=== PATIENT | male | born 1930 | race Caucasian/White ===

== ENCOUNTER 2016-06-06 15:23 | Inpatient (IN) | payer OTHER ==
[~2016-06-06] VITALS: Ht 172.7 cm; Wt 80.8 kg
[~2016-06-06 15:23] MED LIST: ASPIRIN81 M1 PO; CARVEDILOL3.125 MG PO; FISH OIL SUPER1 SGL PO; OMEGA 31000 MG PO; OMEPRAZOLE20 MG PO; VITAMIN; VITAMIN D3400 IU PO; ZETIA10 MG PO; ZOCOR40 MG PO; [UNRECOGNIZED DRUG - OTHER] PO
[2016-06-06 15:54] VITALS: BP 146/72
[2016-06-06 17:06] LABS: BASO # 0.1 10*3/uL (0.0-0.1); BASO % 0.5 % (0.0-1.0); EOS # 0.2 10*3/uL (0.0-0.4); EOS % 1.3 % (1.0-4.0); HEMATOCRIT 43.2 % (42.0-52.0); IG # 0.1 10*3/uL (0.0-0.1); LYMPH # 1.8 10*3/uL (1.3-4.4); LYMPH % 14.4 % (27.0-41.0); MEAN CELL VOLUME 91.1 fl (80.0-94.0); MEAN CORPUSCULAR HGB 31.6 pg (27.0-31.0); MEAN CORPUSCULAR HGB CONC 34.7 g/dl (33.0-37.0); MEAN PLATELET VOLUME 10.7 fl (9.6-12.3); MONO # 1.4 10*3/uL (0.1-1.0); MONO % 10.8 % (3.0-9.0); NEUT # 9.2 10*3/uL (2.3-7.9); NEUT % 72.1 % (47.0-73.0); PLATELET COUNT AUTOMATED 206 10*3/uL (130-400); RED BLOOD COUNT 4.74 10*6/uL (4.50-5.90); RED CELL DISTRI WIDTH 12.2 % (0-14.5); WHITE BLOOD COUNT 12.8 10*3/uL (4.8-10.8)
[2016-06-06 17:23] LABS: ALBUMIN 3.1 gm/dl (3.1-4.5); ALKALINE PHOSPHATASE 79 U/L (45-117); BILIRUBIN, DIRECT 0.7 mg/dL (0.0-0.2); BILIRUBIN, TOTAL 1.4 mg/dl (0.2-1.0); BUN 21 mg/dl (7-24); CARBON DIOXIDE 28 mmol/L (21-32); CHLORIDE 107 mmol/L (98-107); EST GLOM FILT AFRICAN AMERICAN > 60 ml/min; GLUCOSE 114 mg/dL (65-99); POTASSIUM 3.7 mmol/L (3.5-5.1); SGOT/AST 39 IU/L (3-35); SGPT/ALT 50 U/L (12-78); SODIUM 144 mmol/L (136-145); TOTAL PROTEIN 6.6 gm/dL (6.4-8.2); TROPONIN I 0.037 ng/ml (<0.045)
[2016-06-06 19:21] VITALS: BP 154/72
[2016-06-06] MEDS ORDERED: ATORVASTATIN CA20 M1 PO (19:23)
[2016-06-06] MEDS ORDERED: NAMENDA-21 PO (19:23)
[2016-06-06] MEDS ORDERED: TAMSULOSIN HCL0.4 MG PO (19:24)
[2016-06-06 20:03] LABS: BILIRUBIN NEGATIVE (NEGATIVE); BLOOD NEGATIVE (NEGATIVE); CLARITY SL CLOUDY (CLEAR); COLOR YELLOW (YELLOW); GLUCOSE NEGATIVE (NEGATIVE); KETONE NEGATIVE (NEGATIVE); LEUKO ESTERASE NEGATIVE (NEGATIVE); NITRITE NEGATIVE (NEGATIVE); PROTEIN NEGATIVE (NEGATIVE); SPECIFIC GRAVITY <= 1.005 (1.005-1.030)
[2016-06-06 20:10] LABS: RBC 0-2 rbc/hpf (0-2)
[2016-06-06 20:11] LABS: BACTERIA TRACE; CALCIUM OXALATE CRYSTALS TRACE; EPITHELIAL CELLS 0-2; URINE REFLEX COMMENT NO (NO)
[2016-06-06 21:00] VITALS: BP 142/88
[2016-06-06] MEDS ORDERED: VITAMIN D32000 UNI1 PO (21:51)
[2016-06-06] MEDS ORDERED: ARICEPT10 M1 PO (21:52)
[2016-06-07] VITALS: BP 160/79
[2016-06-07 04:00] VITALS: BP 148/68
[2016-06-07 06:05] LABS: BASO % 0.4 % (0.0-1.0); EOS # 0.2 10*3/uL (0.0-0.4); EOS % 1.7 % (1.0-4.0); HEMATOCRIT 38.4 % (42.0-52.0); HEMOGLOBIN 13.4 g/dl (14.0-18.0); IG # 0.1 10*3/uL (0.0-0.1); LYMPH # 2.2 10*3/uL (1.3-4.4); LYMPH % 23.1 % (27.0-41.0); MEAN CELL VOLUME 90.4 fl (80.0-94.0); MEAN CORPUSCULAR HGB 31.5 pg (27.0-31.0); MEAN CORPUSCULAR HGB CONC 34.9 g/dl (33.0-37.0); MEAN PLATELET VOLUME 10.9 fl (9.6-12.3); MONO # 1.2 10*3/uL (0.1-1.0); MONO % 12.1 % (3.0-9.0); NEUT % 61.9 % (47.0-73.0); PLATELET COUNT AUTOMATED 187 10*3/uL (130-400); RED BLOOD COUNT 4.25 10*6/uL (4.50-5.90); RED CELL DISTRI WIDTH 12.3 % (0-14.5); WHITE BLOOD COUNT 9.6 10*3/uL (4.8-10.8)
[2016-06-07 06:46] LABS: ALBUMIN 2.9 gm/dl (3.1-4.5); ALKALINE PHOSPHATASE 69 U/L (45-117); BILIRUBIN, TOTAL 1.1 mg/dl (0.2-1.0); BUN 18 mg/dl (7-24); CARBON DIOXIDE 27 mmol/L (21-32); CHLORIDE 111 mmol/L (98-107); CHOLESTEROL 130 mg/dL (<200); EST GLOM FILT AFRICAN AMERICAN > 60 ml/min; FREE T4 1.31 ng/dl (0.76-1.46); GLUCOSE 92 mg/dL (65-99); HDL CHOLESTEROL 44 mg/dl (40-60); LDL CHOLESTEROL 65 mg/dL (9-159); MAGNESIUM 2.1 mg/dL (1.5-2.1); POTASSIUM 3.4 mmol/L (3.5-5.1); SGOT/AST 23 IU/L (3-35); SGPT/ALT 39 U/L (12-78); SODIUM 146 mmol/L (136-145); TOTAL PROTEIN 5.8 gm/dL (6.4-8.2); TRIGLYCERIDES 106 mg/dl (<150); VLDL CHOLESTEROL 21 mg/dL (6-40)
[2016-06-07 08:00] VITALS: BP 130/52
[2016-06-07 08:02] LABS: HEMOGLOBIN A1c 5.9 % (4.8-5.6)
[2016-06-07 08:32] LABS: FOLIC ACID 13.35 ng/mL (>5.38); VITAMIN D, 25-HYDROXY 37.7 ng/mL (30-100)
[2016-06-07 12:00] VITALS: BP 184/86
[2016-06-07 16:00] VITALS: BP 169/78
[2016-06-07 20:00] VITALS: BP 129/65
[2016-06-08] VITALS: BP 167/80
[2016-06-08 06:08] LABS: BASO # 0.1 10*3/uL (0.0-0.1); BASO % 0.6 % (0.0-1.0); EOS # 0.3 10*3/uL (0.0-0.4); HEMATOCRIT 38.3 % (42.0-52.0); HEMOGLOBIN 13.2 g/dl (14.0-18.0); IG # 0.1 10*3/uL (0.0-0.1); LYMPH # 2.3 10*3/uL (1.3-4.4); LYMPH % 26.1 % (27.0-41.0); MEAN CELL VOLUME 90.5 fl (80.0-94.0); MEAN CORPUSCULAR HGB 31.2 pg (27.0-31.0); MEAN CORPUSCULAR HGB CONC 34.5 g/dl (33.0-37.0); MEAN PLATELET VOLUME 11.1 fl (9.6-12.3); MONO # 1.2 10*3/uL (0.1-1.0); MONO % 13.7 % (3.0-9.0); NEUT % 55.6 % (47.0-73.0); PLATELET COUNT AUTOMATED 192 10*3/uL (130-400); RED BLOOD COUNT 4.23 10*6/uL (4.50-5.90); WHITE BLOOD COUNT 8.9 10*3/uL (4.8-10.8)
[2016-06-08 06:28] LABS: ALBUMIN 2.7 gm/dl (3.1-4.5); ALKALINE PHOSPHATASE 66 U/L (45-117); BUN 11 mg/dl (7-24); CARBON DIOXIDE 27 mmol/L (21-32); CHLORIDE 108 mmol/L (98-107); EST GLOM FILT AFRICAN AMERICAN > 60 ml/min; GLUCOSE 97 mg/dL (65-99); MAGNESIUM 1.9 mg/dL (1.5-2.1); PHOSPHOROUS 2.4 mg/dL (2.5-4.9); POTASSIUM 3.1 mmol/L (3.5-5.1); SGOT/AST 22 IU/L (3-35); SGPT/ALT 32 U/L (12-78); SODIUM 143 mmol/L (136-145)
[2016-06-08 06:29] LABS: TOTAL PROTEIN 5.4 gm/dL (6.4-8.2)
[2016-06-08 08:00] VITALS: BP 122/72
[2016-06-08 12:00] VITALS: BP 134/67
[2016-06-08 16:00] VITALS: BP 140/98
[2016-06-08 20:00] VITALS: BP 144/71
[2016-06-09] VITALS: BP 157/78
[2016-06-09 06:25] LABS: BUN 9 mg/dl (7-24); CARBON DIOXIDE 26 mmol/L (21-32); CHLORIDE 108 mmol/L (98-107); EST GLOM FILT AFRICAN AMERICAN > 60 ml/min; GLUCOSE 91 mg/dL (65-99); POTASSIUM 3.4 mmol/L (3.5-5.1); SODIUM 143 mmol/L (136-145)
[2016-06-09 08:00] VITALS: BP 156/88
[2016-06-09] MEDS ORDERED: FLAGYL500 MG PO (09:47)
[2016-06-09] MEDS ORDERED: CIPRO500 MG PO (09:48)
== END 2016-06-09 11:35 | disposition home health service (06) | DRG 371 ==
LOC: ED 15:23 → 5E 20:05 → EDHOLD 20:05 → 5E 20:14
PROVIDERS: Emergency Medicine; Internal Medicine; Internal Medicine Hospice and Palliative Medicine
DX: A04.9 Bacterial intestinal infection, unspecified (principal); E43 Unspecified severe protein-calorie malnutrition; E87.0 Hyperosmolality and hypernatremia; G30.9 Alzheimer's disease, unspecified; E86.0 Dehydration; D64.9 Anemia, unspecified; F02.80 Dementia in other diseases classified elsewhere, unspecified severity, without behavioral disturbance, psychotic disturbance, mood disturbance, and anxiety; K21.9 Gastro-esophageal reflux disease without esophagitis; I25.10 Atherosclerotic heart disease of native coronary artery without angina pectoris; Z96.1 Presence of intraocular lens; E78.5 Hyperlipidemia, unspecified; E87.6 Hypokalemia; K57.30 Diverticulosis of large intestine without perforation or abscess without bleeding; Z90.49 Acquired absence of other specified parts of digestive tract; Z95.818 Presence of other cardiac implants and grafts; Z98.49 Cataract extraction status, unspecified eye; Z82.49 Family history of ischemic heart disease and other diseases of the circulatory system; Z82.3 Family history of stroke; I25.2 Old myocardial infarction; Z79.82 Long term (current) use of aspirin; Z79.899 Other long term (current) drug therapy; Z68.27 Body mass index [BMI] 27.0-27.9, adult

== ENCOUNTER 2019-02-16 14:24 | Inpatient (IN) | payer OTHER ==
[~2019-02-16] VITALS: Ht 172.7 cm; Wt 72.7 kg
[~2019-02-16 14:24] MED LIST changes: +ARICEPT10 M1 PO; +ATORVASTATIN CA20 M1 PO; +CIPRO500 MG PO; +FLAGYL500 MG PO; +NAMENDA-21 PO; +TAMSULOSIN HCL0.4 MG PO; +VITAMIN D32000 UNI1 PO
[2019-02-16 14:25] VITALS: BP 102/52
[2019-02-16 14:40] VITALS: BP 119/67
--- NOTE | 2019-02-16 14:48 | NUR ---
PTS STATES THAT THE [T HAS "SPELLS" LIKE THIS FROM TIME TO TIME. SHE STATES THAT TODAY HE WAS EXERCISING WITH PT WHEN HE APPEARED TO GET LIGHT HEADED AND "WENT OUT" SHE REPORTS THAT THE PT DID NOT FALL TO THE GROUND THE PT HELPED HIM TO THE CHAIR. SHE STATES THAT THE PT IS AT HIS BASELINE MENTALITY.
[2019-02-16 14:51] LABS: BASO # 0.1 10*3/uL (0.0-0.1); BASO % 0.6 % (0.0-1.0); EOS # 0.5 10*3/uL (0.0-0.4); EOS % 5.4 % (1.0-4.0); HEMATOCRIT 39.8 % (42.0-52.0); HEMOGLOBIN 13.6 g/dl (14.0-18.0); LYMPH % 20.2 % (27.0-41.0); MEAN CELL VOLUME 94.1 fl (80.0-94.0); MEAN CORPUSCULAR HGB 32.2 pg (27.0-31.0); MEAN CORPUSCULAR HGB CONC 34.2 g/dl (33.0-37.0); MEAN PLATELET VOLUME 11.6 fl (9.6-12.3); MONO # 1.1 10*3/uL (0.1-1.0); MONO % 11.6 % (3.0-9.0); NEUT % 61.6 % (47.0-73.0); PLATELET COUNT AUTOMATED 186 10*3/uL (130-400); RED BLOOD COUNT 4.23 10*6/uL (4.50-5.90); RED CELL DISTRI WIDTH 12.6 % (0-14.5); WHITE BLOOD COUNT 9.8 10*3/uL (4.8-10.8)
[2019-02-16 15:09] LABS: ALBUMIN 2.8 gm/dl (3.1-4.5); ALKALINE PHOSPHATASE 87 U/L (45-117); BUN 15 mg/dl (7-24); CHLORIDE 107 mmol/L (98-107); CREATININE 1.08 mg/dL (0.70-1.30); POTASSIUM 3.2 mmol/L (3.5-5.1); SGOT/AST 23 IU/L (3-35); SGPT/ALT 22 U/L (12-78); SODIUM 142 mmol/L (136-145); TOTAL PROTEIN 5.9 gm/dL (6.4-8.2); TROPONIN I 0.029 ng/ml (<0.045)
--- NOTE | 2019-02-16 15:15 | NUR ---
LAB CALLS WITH A LACTIC ACID OF 2.4 DOC MADE AWARE.
--- NOTE | 2019-02-16 15:19 | NUR ---
REPORT FROM HUANG FLOWERS AT THIS TIME.
[2019-02-16 17:26] VITALS: BP 112/60
[2019-02-16 17:40] VITALS: BP 148/80
--- NOTE | 2019-02-16 17:40 | NUR ---
A 88, admitted to , under the services of CLARENCE Bailey DO with a diagnosis of SYNCOPE. Chief complaint is SYNCOPE. Patient arrived via bed from ER. Monitor applied. Initial assessment completed. Vital signs taken and recorded. CLARENCE BAILEY DO notified of admission to the unit. Orders received. See assessment for past medical history, medications and allergies. Patient and/or family oriented to unit. [facility] visitation policy reviewed. Clothing/patient valuable form completed. AYANA HILL
[2019-02-16] MEDS ORDERED: MEMANTINE HCL E21 MG PO (18:00)
[2019-02-16] MEDS ORDERED: DONEPEZIL HCL10 MG PO (18:03)
--- NOTE | 2019-02-16 19:49 | NUR ---
MED UPDATED PER , DR CORBETT NOTIFIED.
--- NOTE | 2019-02-16 19:50 | NUR ---
DR CORBETT NOTIFIED OF PT BILATERAL WOUNDS TO KNEES, PHYSICIAN STATES THAT HE WILL PUT ORDERS IN.
[2019-02-16 20:00] VITALS: BP 140/72
--- NOTE | 2019-02-16 20:02 | NUR ---
PATIENT MEDICATED WITH NORCO FOR C/O BLE PAIN, UNABLE TO STATE LEVEL OF PAIN D/T CONFUSION. WILL MONITOR
--- NOTE | 2019-02-16 21:02 | NUR ---
NORCO EFFECTIVE FOR BLE PAIN
[2019-02-17] VITALS: BP 131/76
--- NOTE | 2019-02-17 | NUR ---
PATIENT RESTING QUIETLY IN BED. NO DISTRESS NOTED. CALL LIGHT WITHIN REACH
--- NOTE | 2019-02-17 04:00 | NUR ---
PATIENT SLEEPING, EYES CLOSED. NO DISTRESS NOTED
[2019-02-17 06:31] LABS: BASO # 0.1 10*3/uL (0.0-0.1); BASO % 0.7 % (0.0-1.0); EOS # 0.6 10*3/uL (0.0-0.4); EOS % 6.8 % (1.0-4.0); HEMATOCRIT 37.6 % (42.0-52.0); HEMOGLOBIN 12.9 g/dl (14.0-18.0); LYMPH # 2.4 10*3/uL (1.3-4.4); LYMPH % 28.8 % (27.0-41.0); MEAN CELL VOLUME 93.3 fl (80.0-94.0); MEAN CORPUSCULAR HGB CONC 34.3 g/dl (33.0-37.0); MEAN PLATELET VOLUME 11.7 fl (9.6-12.3); MONO # 1.1 10*3/uL (0.1-1.0); MONO % 13.7 % (3.0-9.0); NEUT # 4.1 10*3/uL (2.3-7.9); PLATELET COUNT AUTOMATED 172 10*3/uL (130-400); RED BLOOD COUNT 4.03 10*6/uL (4.50-5.90); RED CELL DISTRI WIDTH 12.5 % (0-14.5); WHITE BLOOD COUNT 8.3 10*3/uL (4.8-10.8)
[2019-02-17 06:50] LABS: BUN 14 mg/dl (7-24); CHLORIDE 109 mmol/L (98-107); CREATININE 0.94 mg/dL (0.70-1.30); POTASSIUM 3.1 mmol/L (3.5-5.1); SODIUM 144 mmol/L (136-145)
[2019-02-17 07:00] LABS: FREE T4 1.09 ng/dl (0.76-1.46)
[2019-02-17 07:32] LABS: ACT PARTIAL THROMBO TIME 25.7 SECONDS (20.0-32.1)
[2019-02-17 07:41] LABS: VITAMIN D, 25-HYDROXY 41.4 ng/mL (30-100)
--- NOTE | 2019-02-17 08:00 | NUR ---
ORDERS RECEIVED TO STRAIGHT CATH PATIENT IN ORDER TO OBTAIN URINE FOR UA.
--- NOTE | 2019-02-17 08:20 | NUR ---
ATTEMPTSX2 MADE TO STRAIGHT CATH PATIENT, UNSUCCESSFUL AT THIS TIME. DR OWEN NOTIFIED AND REQUESTS THAT WE TRY A [place] CATHETER IN ORDER TO OBTAIN URINE SPECIMEN, DUE TO PATIENT BEING INCONTINENT.
[2019-02-17 09:01] VITALS: BP 130/68
--- NOTE | 2019-02-17 09:24 | NUR ---
PT GIVEN NORCO AT THIS TIME FOR C/O GENERALIZED BODY PAIN. WILL MONITOR FOR EFFECTIVENESS. RESPIRATIONS 20 ON ROOM AIR, UNLABORED. VITALS WNL. SAFETY MEASURES IN PLACE. CALL LIGHT IN REACH.
--- NOTE | 2019-02-17 10:24 | NUR ---
SHAYY EFFECTIVE PER PT.
[2019-02-17 12:08] VITALS: BP 128/70
--- NOTE | 2019-02-17 13:00 | NUR ---
CONDOM CATHETER IN PLACE WITH NO DRAINAGE OF URINE NOTED AT THIS TIME. WILL CONTINUE TO MONITOR FOR OUTPUT.
--- NOTE | 2019-02-17 13:30 | NUR ---
PT IS FOUND TO HAVE ST DIETER PACEMAKER. PACEMAKER INTERROGATED AT BEDSIDE PER PROTOCOL BY 2 RNS. AWAITING RESULTS. PER FAMILY, PACEMAKER BATTERY HAS A RECALL. PER FAMILY, ALL BATTERY CHECKS HAVE SHOWN TO BE NORMAL AND NOT FAULTY. PER FAMILY, PT WAS UNABLE TO MAKE LAST APPOINTMENT TO HAVE PACEMAKER CHECKED, WHICH WAS TWO WEEKS AGO.
[2019-02-17 14:34] LABS: BILIRUBIN 1+ (NEGATIVE); BLOOD 3+ (NEGATIVE); CLARITY CLOUDY (CLEAR); COLOR YELLOW (YELLOW); GLUCOSE NEGATIVE (NEGATIVE); KETONE NEGATIVE (NEGATIVE); LEUKO ESTERASE TRACE (NEGATIVE); NITRITE NEGATIVE (NEGATIVE); PH 5.5 (5.0-9.0); SPECIFIC GRAVITY >= 1.030 (1.005-1.030)
[2019-02-17 14:43] LABS: BACTERIA 1+; EPITHELIAL CELLS 0-2; MUCOUS 2+; RBC 21-30 rbc/hpf (0-2)
--- NOTE | 2019-02-17 15:48 | NUR ---
Shift chart check completed.
--- NOTE | 2019-02-17 16:00 | NUR ---
PT BATHED AT THIS TIME AND DRESSINGS TO BILATERAL KNEES ARE PLACED. PT TOLERATED WELL. NO S/S OF DISTRESS. RESPIRATIONS EASY AND UNLABORED ON ROOM AIR. CALL LIGHT IN REACH. SAFETY MEASURES IN PLACE.
--- NOTE | 2019-02-17 19:30 | NUR ---
[email or web address] STATED THAT THEY DID NOT RECIEVED TRANSMISSION FOR PACEMAKER INTERROGATION. INTERROGATION DONE AGAIN.
[2019-02-17 20:00] VITALS: BP 130/69
[2019-02-18] VITALS: BP 126/60
--- NOTE | 2019-02-18 00:11 | NUR ---
CALLED [facility] IN REGARDS TO PACEMAKER INTEROGATION. STATED THAT THE INTEROGATOR IS PAIRING WITH THE DEVICES BUT NOT SENDING AN ACTUALLY TRANSMISSION. STATED THAT IT WILL HAVE TO BE COMPLETED AGAIN. WILL ATTEMPT IN MORNING WHEN PATIENT IS NOT ASLEEP
--- NOTE | 2019-02-18 02:04 | NUR ---
24 HR chart check completed.
[2019-02-18 06:37] LABS: BASO # 0.1 10*3/uL (0.0-0.1); BASO % 0.9 % (0.0-1.0); EOS # 0.7 10*3/uL (0.0-0.4); EOS % 7.4 % (1.0-4.0); HEMATOCRIT 38.9 % (42.0-52.0); HEMOGLOBIN 13.2 g/dl (14.0-18.0); LYMPH # 2.3 10*3/uL (1.3-4.4); LYMPH % 23.6 % (27.0-41.0); MEAN CELL VOLUME 92.8 fl (80.0-94.0); MEAN CORPUSCULAR HGB 31.5 pg (27.0-31.0); MEAN CORPUSCULAR HGB CONC 33.9 g/dl (33.0-37.0); MEAN PLATELET VOLUME 11.7 fl (9.6-12.3); MONO # 1.3 10*3/uL (0.1-1.0); MONO % 12.8 % (3.0-9.0); NEUT # 5.4 10*3/uL (2.3-7.9); NEUT % 54.4 % (47.0-73.0); PLATELET COUNT AUTOMATED 178 10*3/uL (130-400); RED BLOOD COUNT 4.19 10*6/uL (4.50-5.90); RED CELL DISTRI WIDTH 12.5 % (0-14.5); WHITE BLOOD COUNT 9.9 10*3/uL (4.8-10.8)
[2019-02-18 07:02] LABS: BUN 14 mg/dl (7-24); CHLORIDE 112 mmol/L (98-107); CREATININE 0.76 mg/dL (0.70-1.30); POTASSIUM 3.7 mmol/L (3.5-5.1); SODIUM 144 mmol/L (136-145)
[2019-02-18 12:00] VITALS: BP 141/69
--- NOTE | 2019-02-18 13:00 | NUR ---
PHYSICAL THERAPY PT EVAL COMPLETED TODAY: FULL EVAL TO FOLLOW. RECOMMEND PT WHILE HERE TO ADDRESS DECREASED STRENGTH AND FUNCTIONAL MOBILITY . PT EVAL IS MODERATE COMPLEXITY : 94455, D/C RECOMEMNDATIONS AT THIS TIME ARE FOR SNF ON D/C DUE TO SEVERE LIMITATIONS IN MOBILITY. THANK YOU FOR REFERRAL MAVERICK POWELL PT
--- NOTE | 2019-02-18 13:16 | NUR ---
PT UP IN CHAIR AT BEDSIDE. VOICES NO NEEDS. AT BEDSIDE.CALL LIGHT IN REACH.
[2019-02-18 16:00] VITALS: BP 132/69
--- NOTE | 2019-02-18 17:08 | NUR ---
NORCO 5/325 MG GIVEN FOR C/O NECK PAIN,10/07.
--- NOTE | 2019-02-18 19:15 | NUR ---
REPORT RECIEVED FROM ROSALBA. WAS INFORMED BY THIS NURSE THAT VERBALLY STATED THAT INTEROGATION OF PACEMAKER DID NOT NEED TO BE DONE.
[2019-02-18 20:00] VITALS: BP 141/76
--- NOTE | 2019-02-18 21:50 | NUR ---
PATIENT MEDICATED WITH RESTORIL TO HELP WITH INSOMNIA. WILL MONITOR
[2019-02-19] VITALS: BP 135/44
--- NOTE | 2019-02-19 03:37 | NUR ---
24 HR chart check completed.
--- NOTE | 2019-02-19 03:56 | NUR ---
IV started right arm with #22 protective cath after 0 attempts. Site prepped with Chloroprep. Sterile dressing applied. Patient tolerated procedure well. IV infusing at 80 cc/hr. OLYA GIBSON
--- NOTE | 2019-02-19 03:57 | NUR ---
Hep Lock discontinued RAN. Site symptomatic, LEAKING AT SITE. Pressure applied. Sterile dressing applied. OLYA GIBSON
--- NOTE | 2019-02-19 05:19 | NUR ---
PATIENT MEDICATED WITH NORCO FOR NECK PAIN. WILL MONITOR
--- NOTE | 2019-02-19 06:19 | NUR ---
NORCO EFFECTIVE FOR NECK PAIN
--- NOTE | 2019-02-19 07:21 | NUR ---
CHARLES VILLAR [id number] Please refer to the physician's history and physical for past medical history, comorbid conditions, and allergies. Diagnosis: SYNOCPE Jarad Score: 13,MODERATE RISK WOUND DESCRIPTIONS: Wound Number: 1 Location of the wound: right knee Type of wound: skin tear Thickness: Full Size: 0.5cm x 1.5cm x 0.1cm Tunneling: none Undermining: none Sinus Tract: none Presence of Exudate: Serosanguineous Amount: Light Color: Red, yellow Odor: None Periwound Skin Appearance: Erythema Wound edges: approximated Pain (associated with wound): none at time of assessment How does patient state this happened? pt stated he fell but is unsure of the date Wound Number: 2 Location of the wound: left knee Type of wound: skin tear Thickness: Partial Size: 1.2cm x 0.7cm x 0.1cm Tunneling: none Undermining: none Sinus Tract: none Presence of Exudate: Serosanguineous Amount: Light Color: Red Odor: None Periwound Skin Appearance: Erythema Wound edges: approximated Pain (associated with wound): none at time of assessment How does patient state this happened? pt stated he fell but unable to tell me the date Surface the patient is resting on: Isoflex SKIN PREVENTION RECOMMENDATION: 1. Pressure redistribution support surface as appropriate 2. Elevate heels 3. Remove boots/TEDS every shift and reapply 4. Head of bed 30 degrees as tolerated 5. Assess nutrition and hydration 6. Manage moisture 7. Avoid the use of containment devices while in bed 8. Use absorptive products on surfaces limit layers of linens on bed 9. Turn and reposition every 1-2 hours in bed and every 1 hour in chair as tolerated 10. Weight shifts every 15 minutes while up in chair 11. Offloading with pillows or device to keep heels elevated off bed 12. Monitor skin at least every shift 13. Inspect under medical devices twice a day WOUND TREATMENT RECOMMENDATIONS: Continue skin tear guidelines to bilateral knees.
[2019-02-19 08:00] VITALS: BP 143/67
--- NOTE | 2019-02-19 08:50 | NUR ---
Occupational therapy orders received and OT evaluation completed in full on floor four. Patient precautions include fall risk, ww use, decreased cognition, poor safety awareness, Mod-Max Ax2, and bed/chair alarm. Per OT eval, OT recommends a SNF. If refused, home with SN, OT, and PT with / supervision/assist. Patient would benefit from continued OT treatment to maximize independence and safety with ADLs, mobility, and transfers. Patient complexity is moderate, 29903. Thank you for the referral. Valentina Vazquez, OTR/L
--- NOTE | 2019-02-19 09:00 | NUR ---
Flask Pusher in to see patient. He is sitting up in his bedside chair working with OT. Will follow up at a later time and call his .
--- NOTE | 2019-02-19 09:43 | NUR ---
Spoke to , Julieta, at [phone]. Discussed discharge planning. She refuses SNF and would like to continue his current home health services with [facility]. He lives with his . There are 13 steps in the home. He needs minimal assistance with his ADLs and ambulation. His will provide transportation on discharge. When medically stable he will be discharged to home with the resumption of his [facility] services.
--- NOTE | 2019-02-19 10:13 | NUR ---
PHYSICAL THERAPY Patient was eating breakfast at 09:50 AM this AM. Will check back with patient later. RENETTA GIBSON RN MOBILE
--- NOTE | 2019-02-19 10:18 | NUR ---
PHYSICAL THERAPY Patient presented to therapy in supine in bed with head of bed elevated and bed alarm activated. Patient gives informed consent for treatment. Patient was identified by name and on wristband. Patient performed supine to sitting at EOB with MAX A X 1. Patient sat on EOB with CGA X 1 to MIN AX 1 due ot rearward lean while sitting on EOB. Patient required verbal cues for leaning forwards in sitting to counter retrograde lean in sitting. Patient sit to stand transfer from EOB with MOD A X 2. Patient stand pivot transfer to bedside chair with MOD A X 2 with verbal cues for wider MARINA, lifting feet in order to swing through and pushing down on Wh Walker with bilateral hands. Patient transferred into bedside chair with MIN A X 2 WITH VERBAL CUES for putting hands back on armrests of chair. Patient required verbal cues for locking knees into extension when standing and during stand pivot transfer. Patient was left in sitting position in bedside chair with call light within reach, chair alarm tested and attached to patient and tray table bear patient. Patient was 1:1 with this ACTING SECTION CHIEF for 14 minutes total. RENETTA GIBSON ACTING SECTION CHIEF
--- NOTE | 2019-02-19 10:46 | NUR ---
Notified Dr. Sepulveda of the need for an [facility] resumption order.
--- NOTE | 2019-02-19 11:14 | NUR ---
Faxed home health care resumption to [facility]
[2019-02-19 12:00] VITALS: BP 138/62
--- NOTE | 2019-02-19 13:55 | NUR ---
D/C PHOTOS COMPLETED PER PROTOCOL. PT TOLERATED WELL. DRESSING CHANGE COMPLETED PER PHYSICIAN ORDER.
--- NOTE | 2019-02-19 14:35 | NUR ---
Discharge instructions reviewed with patient/family. Patient receptive and verbalizes understanding. Follow-up care arranged. Written instructions given to patient/family. CHARLES NEGRON
--- NOTE | 2019-02-19 14:50 | NUR ---
Patient is being discharged to home with home health . Contacted Ramandeep at [facility] and asked her to please disregard the referral.
--- NOTE | 2019-02-20 14:45 | NUR ---
PHYSICAL THERAPY CO-SIGN I approve of the Physical Therapy notes written above Yandy Ramirez PT
== END 2019-02-19 14:35 | disposition home health service (06) | DRG 314 ==
LOC: ED 14:24 → EDHOLD 17:08 → 4E 17:08
PROVIDERS: Emergency Medicine; Internal Medicine; ADMIT Internal Medicine
DX: I95.9 Hypotension, unspecified (principal); E43 Unspecified severe protein-calorie malnutrition; E87.2 Acidosis; G30.9 Alzheimer's disease, unspecified; F02.80 Dementia in other diseases classified elsewhere, unspecified severity, without behavioral disturbance, psychotic disturbance, mood disturbance, and anxiety; E78.5 Hyperlipidemia, unspecified; K21.9 Gastro-esophageal reflux disease without esophagitis; D53.9 Nutritional anemia, unspecified; E87.6 Hypokalemia; E87.8 Other disorders of electrolyte and fluid balance, not elsewhere classified; I25.10 Atherosclerotic heart disease of native coronary artery without angina pectoris; Z96.1 Presence of intraocular lens; Z95.5 Presence of coronary angioplasty implant and graft; Z68.24 Body mass index [BMI] 24.0-24.9, adult; Z95.0 Presence of cardiac pacemaker; Z98.49 Cataract extraction status, unspecified eye; Z82.3 Family history of stroke; Z82.49 Family history of ischemic heart disease and other diseases of the circulatory system; Z79.82 Long term (current) use of aspirin; Z79.899 Other long term (current) drug therapy; I25.2 Old myocardial infarction